=== PATIENT | female | born 1995 | race Caucasian/White ===

== ENCOUNTER 2019-01-26 09:45 | Observation (INO) | payer MEDICAID, OTHER ==
[2019-01-26] VITALS (26 sets, daily range): BP systolic 109–142; BP diastolic 57–77; PULSE 56–94; RESP 11–24; Ht 154.9 cm; Wt 57.7 kg
[~2019-01-26] VITALS: Ht 154.9 cm; Wt 57.7 kg
[~2019-01-26 09:45] MED LIST: CEFAZOLIN 2 GM/50 ML (PMX) 50 ML IVPB SCH; PRENAT PO; SOD CHLORIDE 0.9% 1,000 ML IV SCH
--- NOTE | 2019-01-26 12:56 | PREAC ---
Date/Time of Note Date/Time of Note DATE: 01/26/19 TIME: 12:55 Anesthesia Eval and Record Evaluation Time Pre-Procedure Interview DATE: 01/26/19 TIME: 12:55 Age 23 Sex female NPO: 8 hrs Preoperative diagnosis cholelithiasis Planned procedure Laparoscopic cholecystectomy Past Medical History Past Medical History: None Surgery & Anesthesia Issues No known issue Meds Anticoagulation: No Beta Bill within 24 hr: No Reason Beta Bill not given: Pt. not on B-Bill Discontinued Reported Medications Multivit/Min/Fol Ac/Iron/Pren* ( S*) 1 Tab Tab, 1 TAB PO DAILY, TAB 08/22/16 Current Medications Sodium Chloride 1,000 ml @ 75 mls/hr [id number] IV Last administered on 01/26/19at 10:45; Admin Dose 75 MLS/HR; Start 01/26/19 at 06:00; Stop 01/26/19 at 19:19 Cefazolin Sodium/ Dextrose 50 ml @ 100 mls/hr PREOP IVPB ; Start 01/26/19 at 06:00; Stop 01/26/19 at 19:00 Meds reviewed: Yes Allergies Coded Allergies: No Known Allergy (Unverified , 01/26/19) Allergies Reviewed: Yes Labs/Studies Labs Reviewed: Reviewed by anesthesiologist Result Diagram: 01/26/19 1038 01/26/19 1038 Laboratory Tests 01/26/19 10:38 test: Negative Pre-procedure Exam Last vitals Vital Signs Date Temp Pulse Resp B/P (MAP) Pulse Ox O2 O2 Flow FiO2 Time Delivery Rate 01/26/19 98.3 71 16 109/59 99 Room Air 10:49 (76) Airway: Adequate mouth opening, Adequate thyromental dist Mallampati: Mallampati II Teeth: Normal (missing x2 lower molars) Lung: Normal Heart: Normal ASA Physical Status ASA physical status: 1 Emergency: None Planned Anesthetic General/MAC: ETT Planned Pain Management Single shot nerve block (TAP block) Pre-operative Attestations Prior to commencing anesthesia and surgery, the patient was re-evaluated, there was verification of: *The patient's identity *The results of appropriate recent lab work and preoperative vital signs *The above evaluation not changing prior to induction *Anesthetic plan, risk benefits, alternative and complications discussed with patient/family; questions answered; patient/family understands, accepts and wishes to proceed. [employer] In[employer] used [employer] Jan 26, 2019 12:56
[2019-01-26] MEDS ORDERED: FENTAnyl 50 MCG/ML VIAL ONE ×2 (14:10→15:58)
[2019-01-26] MEDS ORDERED: PROPOFOL 20 ML ONE (14:10)
[2019-01-26] MEDS ORDERED: CEFAZOLIN 1 GM INJ ONE (14:10)
[2019-01-26] MEDS ORDERED: ROCURONIUM 50 MG INJ ONE (14:10)
[2019-01-26] MEDS ORDERED: GLYCOPYRROLATE 0.4 MG INJ ONE (14:10)
[2019-01-26] MEDS ORDERED: MIDAZOLAM 1 MG/ML 2 ML INJ ONE (14:10)
[2019-01-26] MEDS ORDERED: NEOSTIGMINE 3 MG/3 ML SYRINGE ONE (14:10)
[2019-01-26] MEDS ORDERED: ONDANSETRON 4 MG INJ ONE (14:10)
[2019-01-26] MEDS ORDERED: DEXAMETHASONE 4 MG/ML 5 ML INJ ONE (14:10)
[2019-01-26] MEDS ORDERED: ROPIVACAINE 0.5 % 30 ML VIAL ONE (14:11)
[2019-01-26] MEDS ORDERED: BUPIVACAINE 0.5%/EPI (SDV) 30 ML INJ ONE (14:53)
[2019-01-26] MEDS ORDERED: LABETALOL HCL 20MG INJ IV PRN (15:00)
[2019-01-26] MEDS ORDERED: DIPHENHYDRAMINE 50 MG INJ IV PRN (15:00)
[2019-01-26] MEDS ORDERED: HYDROmorphONE 1 MG/5 ML IV SYRINGE IV PRN ×3 (15:00)
[2019-01-26] MEDS ORDERED: EPHEDrine SULFATE 50 MG/5 ML SYG IV PRN (15:00)
[2019-01-26] MEDS ORDERED: hydrALAzine 20 MG INJ IV PRN (15:00)
[2019-01-26] MEDS ORDERED: OXYCODONE/ACETAMINOPHEN (5/325) TAB PO PRN ×2 (15:00)
[2019-01-26] MEDS ORDERED: TRIMETHOBENZAMIDE 100 MG/ML VIAL IM PRN (15:00)
[2019-01-26] MEDS ORDERED: MIDAZOLAM 1 MG/ML 2 ML INJ IV PRN (15:00)
[2019-01-26] MEDS ORDERED: IPRATROPIUM (NEB) 0.5 MG/2.5 ML AMP HHN PRN (15:00)
[2019-01-26] MEDS ORDERED: ALBUTEROL 0.083% (NEB) 2.5 MG/3 ML AMP HHN PRN (15:00)
[2019-01-26] MEDS ORDERED: MEPERIDINE 25 MG INJ IV PRN (15:00)
[2019-01-26] MEDS ORDERED: FENTAnyl 50 MCG/ML VIAL IV PRN ×3 (15:00)
--- NOTE | 2019-01-26 16:28 | OPR ---
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 Estimated Blood Loss: minimal Transfusion none Specimen Gallbladder Grafts/Implants none Complications none Pt Condition Post Procedure: stable Disposition: PACU Indications The patient is a 23-year-old [place] female who presented to the office with a 2-year history of epigastric abdominal pain. The patient had clinical signs and symptoms of biliary colic and chronic cholecystitis which was confirmed via an ultrasound which showed a gallbladder filled with gallstones. The patient was scheduled for laparoscopic cholecystectomy; possible open as definitive treatment to prevent further sequelae of gallstone disease which include but are not limited to: Gangrenous cholecystitis, choledocholithiasis, gallstone pancreatitis, ascending cholangitis, etc. All risks and benefits of the procedure including but not limited to: Wound infection, excessive bleeding, common bile duct injury, postoperative biliary leak, retained common bile duct stone, injury to intra-abdominal organs, conversion to open procedure, possible need for subsequent surgeries, etc. were all explained to the patient in full detail. She fully understood and wished to proceed with the procedure. Informed consent was therefore obtained. Procedure Description The patient was brought to the operating room and placed supine on the operating table. Bilateral sequential compression devices were placed on both lower extremities. A dose of broad-spectrum perioperative intravenous antibiotics was given. After the induction of smooth general endotracheal anesthesia the patient's abdomen was prepped and draped in the standard surgical fashion. After performance of the surgical timeout a 5 mm incision was made in the inferior umbilicus and a Veress needle was used to access the intra-abdominal cavity atraumatically. Pneumoperitoneum was then obtained and the Veress needle was exchanged for a 5 mm trocar through which a 5 mm laparoscope was placed. Three further working ports were then placed a 12 mm port in the sub-xiphoid region and two 5 mm ports in the right upper quadrant. All port sites were anesthetized with 0.5% Marcaine with epinephrine prior to incision. Diagnostic laparoscopy showed adhesions of the a sending colon to the right abdominal wall. Using a traumatic graspers the gallbladder was grasped and retracted superiorly. There were adhesions of the omentum to the anterior surface of the gallbladder. These were taken down bluntly. The gallbladder was unable to be grasped and retracted laterally exposing the area of Gonzalez's pouch. Dissection was begun in this area using a combination of blunt dissection and hook electrocautery. The cystic duct was identified as it entered straight into the neck of the gallbladder. It was dissected free of surrounding tissues and clipped proximally and distally x 3 and transected using EndoShears. Dissection was then continued posteriorly. Th e cystic artery was identified and dissected free of surrounding tissues. It too was clipped proximally and distally x 3 and transected using EndoShears. The gallbladder was then dissected off the liver bed using electrocautery. There was some chronic scarring of the gallbladder to the liver bed. Once completely free the gallbladder was placed in an Endo Catch bag and withdrawn through the subxiphoid port site and passed off the field as specimen. Hemostasis was then inspected for and noted to be total. The abdomen was then irrigated with several liters of warm normal saline and the irrigant returned crystal clear. The fascia of the subxiphoid port site was then reapproximated using a sourav-close device. Pneumoperitoneum was then released and all remaining trochars were withdrawn under direct vision. The subcutaneous tissues were irrigated with more warm normal saline. The skin was then reapproximated using 4-0 Monocryl sutures in subcuticular fashion. The incisions were cleaned and Dermabond was applied to the incisions and the patient was awoken from anesthesia and transported to the recovery room in stable condition. A tap block was performed at the conclusion of the case by the anesthesiologist and will be documented separately by him. All counts were correct at the end of the case x 2. WENDY WATERS MD Jan 26, 2019 16:28
[2019-01-26] MEDS ORDERED: IBUPROFEN 600 MG TAB PO PRN (16:30)
[2019-01-26] MEDS ORDERED: KETOROLAC 30 MG INJ IV PRN (16:30)
[2019-01-26] MEDS ORDERED: HYDROCODONE/APAP (5/325) TAB PO PRN ×2 (16:30)
[2019-01-26] MEDS ORDERED: ONDANSETRON 4 MG INJ IV PRN (16:30)
[2019-01-26] MEDS ORDERED: morphine 2 MG INJ IV PRN (16:30)
[2019-01-26] MEDS: ONDANSETRON 4 MG INJ IV PRN ×2 (16:54→17:58)
[2019-01-26] MEDS ORDERED: ZOLPIDEM 5 MG TAB PO PRN (23:00)
[2019-01-27 02:21] VITALS: BP 102/56; PULSE 80; RESP 18
[2019-01-27 08:33] VITALS: BP 119/72; PULSE 69; RESP 18
--- NOTE | 2019-01-27 09:35 | PN ---
Date/Time of Note Date/Time of Note DATE: 01/27/19 TIME: 09:34 Assessment/Plan Lines/Catheters IV C[facility]ter Type (from [facility]): Peripheral IV Assessment/Plan Chief Complaint/Hosp Course 23-year-old female status post laparoscopic cholecystectomy postop day #1 * Emesis is resolved. Pain is controlled. * Stable for discharge home. * Follow-up in office in 2 weeks. Subjective 24 Hr Interval Summary Kept overnight for observation secondary to multiple episodes of vomiting post surgery and pain. Overnight course was uneventful. She feels better today. D enies any nausea. Tolerating diet. Afebrile. Exam/Review of Systems Vital Signs Vitals Vital Signs Date Temp Pulse Resp B/P (MAP) Pulse Ox O2 O2 Flow FiO2 Time Delivery Rate 01/27/19 98.4 69 18 119/72 98 Room Air 08:33 (88) 01/26/19 3.0 17:01 Intake and Output 01/26/19 01/26/19 01/27/19 1414:59 22:59 06:59 IntakeIntake Total 1200 ml 250 ml OutputOutput Total 25 ml BalanceBalance 1175 ml 250 ml Exam Free Text/Dictation GENERAL: Awake, alert, oriented x 3. No acute distress. SKIN: No jaundice. HEENT: PERRLA, EOMI, No Scleral Icterus NECK: Supple without JVD CARDIOVASCULAR: S1S2, regular rate and rhythm. No murmurs appreciated. RESPIRATORY: Clear to auscultation bilaterally. ABDOMEN: Soft, bowel sounds present, nondistended, appropriate incisional tenderness to palpation. INCISIONS: Clean, dry, intact EXTREMITIES: Free range of motion x 4. No cyanosis, edema, or clubbing. NEUROLOGIC: Cranial nerves II-XII are intact. Sensation is intact grossly. Results Result Diagram: 01/26/19 1038 01/26/19 1038 WENDY WATERS MD Jan 27, 2019 09:35
--- NOTE | 2019-01-27 09:37 | DS ---
Date/Time of Note Date/Time of Note DATE: 01/27/19 TIME: 09:36 Discharge Summary Admission/Discharge Info Admit Date/Time Jan 26, 2019 at 19:51 Discharge Date/Time January 27, 2019 Discharge Diagnosis Cholelithiasis/chronic cholecystitis Patient Condition: Stable Procedures Laparoscopic cholecystectomy Hx of Present Illness Patient is a 23-year-old female who presented to the office complaining of epigastric and right upper quadrant abdominal pain. She had signs and symptoms consistent with biliary colic and chronic cholecystitis which was confirmed via an ultrasound which showed presence of gallstones. Patient was scheduled for elective cholecystectomy. Hospital Course 23-year-old female status post laparoscopic cholecystectomy postop day #1 For observation secondary to emesis and pain. * Emesis is resolved. Pain is controlled. * Stable for discharge home. * Follow-up in office in 2 weeks. Home Meds Discontinued Reported Medications Multivit/Min/Fol Ac/Iron/Pren* ( S*) 1 Tab Tab, 1 TAB PO DAILY, TAB 08/22/16 Follow-up Plan Follow-up in office in 2 weeks Primary Care Provider Care Physician No Primary Time spent on discharge: > 30 minutes Pending Labs Laboratory Tests Test 01/26/19 10:38 01/27/19 06:47 White Blood Count 4.3 10^3/ul (4.8-10.8) Red Blood Count 3.91 10^6/ul (4.20-5.40) Hemoglobin 11.0 g/dl (12.0-16.0) Hematocrit 33.5 % (37.0-47.0) Mean Corpuscular Volume 85.7 fl (82.0-101.0) Mean Corpuscular Hemoglobin 28.1 pg (29.0-33.0) Mean Corpuscular Hemoglobin Concent 32.8 g/dl (32.0-37.0) Red Cell Distribution Width 12.9 % (11.5-14.5) Platelet Count 220 10^3/UL (140-415) Mean Platelet Volume 11.1 fl (7.4-10.4) Immature Granulocytes % 0.200 % (0.001-0.429) Neutrophils % 45.6 % (39.0-77.0) Lymphocytes % 38.7 % (15.0-51.0) Monocytes % 6.7 % (0.0-11.0) Eosinophils % 8.3 % (0.0-7.0) Basophils % 0.5 % (0.0-2.0) Nucleated Red Blood Cells % 0.0 /100WBC (0.0-0.0) Immature Granulocytes # 0.010 10^3/ul (0.0-0.031) Neutrophils # 2.0 10^3/ul (1.6-7.5) Lymphocytes # 1.7 10^3/ul (0.8-2.9) Monocytes # 0.3 10^3/ul (0.3-0.9) Eosinophils # 0.4 10^3/ul (0.0-0.5) Basophils # 0.0 10^3/ul (0.0-0.1) Nucleated Red Blood Cells # 0.0 10^3/ul (0.0-0.0) CBC Results Faxed/Phoned 1 Prothrombin Time 12.7 Sec (11.9-14.9) Prothrombin Time Ratio 1.0 INR International Normalized Ratio 0.94 Activated Partial Thromboplast Time 28.6 Sec (23.0-35.0) Sodium Level 143 mmol/L (135-144) Potassium Level 4.0 mmol/L (3.5-5.1) Chloride Level 107 mmol/L (97-110) Carbon Dioxide Level 25 mmol/L (21-31) Anion Gap 11 (5-13) Blood Urea Nitrogen 13 mg/dl (7-20) Creatinine 0.36 mg/dl (0.44-1.00) Est Glomerular Filtrat Rate mL/min > 60 mL/min (>60) Glucose Level 89 mg/dl (70-220) Calcium Level 9.8 mg/dl (8.4-10.2) Total Bilirubin 0.3 mg/dl (0.2-1.3) Direct Bilirubin 0.00 mg/dl (0.00-0.20) Indirect Bilirubin 0.3 mg/dl (0-1.1) Aspartate Amino Transf (AST/SGOT) 28 IU/L (15-46) Alanine Aminotransferase (ALT/SGPT) 40 IU/L (13-69) Alkaline Phosphatase 74 IU/L (42-121) Total Protein 7.4 g/dl (6.1-8.1) Albumin 4.4 g/dl (3.3-4.9) Globulin 3.00 g/dl (1.3-3.2) Albumin/Globulin Ratio 1.46 Lab Scanned Report LAB [id number] WENDY WATERS MD Jan 27, 2019 09:37
--- NOTE | 2019-01-27 13:58 | PAC ---
Date/Time of Note Date/Time of Note DATE: 01/27/19 TIME: 13:58 Post-Anesthesia Notes Post-Anesthesia Note Last documented vital signs Vital Signs Date Temp Pulse Resp B/P (MAP) Pulse Ox O2 O2 Flow FiO2 Time Delivery Rate 01/27/19 98.4 69 18 119/72 98 Room Air 08:33 (88) 01/26/19 3.0 17:01 Activity: WNL Respiratory function: WNL Cardiovascular function: WNL Mental status: Baseline Pain reasonably controlled: Yes Hydration appropriate: Yes Nausea/Vomiting absent: Yes Villa Faustin M.D. Jan 27, 2019 13:58
== END 2019-01-27 11:30 | disposition home or self-care (01) ==
LOC: SDS 09:45 → REC 19:51 → SDS 19:51 → PP2 20:27
PROVIDERS: ADMIT Surgery; ATTEND Surgery
DX: K80.10 Calculus of gallbladder with chronic cholecystitis without obstruction (principal)
CPT/HCPCS: 47562; 80053; 85025; 85610; 85730; 88304; J0690; J1100; J1170; J1885; J2175; J2250; J2405; J2710; J2795; J3010; Z7500; Z7512; Z7610; G0378